=== PATIENT | male | born 1975 | race American Indian/Alaskan Native ===

== ENCOUNTER 2017-05-17 09:56 | Observation (INO) | payer OTHER ==
[2017-05-17 10:09] VITALS: BP 155/92; PULSE 54; RESP 18; TEMP 97; O2SAT 98
[2017-05-17] MEDS ORDERED: Sodium Chloride 0.9% 1,000 ML IV STA (11:02)
--- NOTE | 2017-05-17 11:21 | ED PDOC ---
HPI: General Adult Time Seen by Provider: 05/17/17 10:22 Chief Complaint (Nursing): Back Pain History Per: Patient Additional Complaint(s): Pt. states on he woke up with L sided localized flank pain worsened with movement. Pt. states he attempted to self treat with a muscle relaxer without much relief. Today he contacted his urologist in the [place] who advised him to come to ED to r/o a kidney stone. Pt. reports a hx of 2 previous kidney stones (2009 which required lithotripsy, 2013 which he passed on his own). Pt. also reports feeling nauseous but vomiting. Last CT was back in 2013. Denies hematuria, trauma, fever, incontinence, chest pain, abdominal pain, SOB, hemoptysis. Past Medical History Reviewed: Historical Data, Nursing Documentation, Vital Signs Vital Signs: Last Vital Signs Temp 97 F L 05/17/17 10:08 Pulse 54 L 05/17/17 10:08 Resp 18 05/17/17 10:08 BP 155/92 H 05/17/17 10:08 Pulse Ox 98 05/17/17 11:35 - Medical History PMH: Kidney Stones - Family History Family History: States: No Known Family Hx - Immunization History Hx Tetanus Toxoid Vaccination: No Hx Influenza Vaccination: No Hx Pneumococcal Vaccination: No - Home Medications Home Medications: Ambulatory Orders Medication Instructions Recorded Naproxen [Naprosyn] 500 mg PO BID PRN #30 tab 05/17/17 Tamsulosin [Flomax] 0.4 mg PO DAILY #14 cap 05/17/17 oxyCODONE/Acetaminophen [Percocet 1 ea PO Q8 PRN #12 tab 05/17/17 5/325 mg Tab] - Allergies Allergies/Adverse Reactions: Allergies Allergy/AdvReac Type Severity Reaction Status Date / Time No Known Allergies Allergy Verified 05/17/17 10:04 Review of Systems ROS Statement: Except As Marked, All Systems Reviewed And Found Negative Gastrointestinal: Positive for: Nausea Musculoskeletal: Positive for: Back Pain Physical Exam - Physical Exam Appears: Positive for: Well, Non-toxic, No Acute Distress Skin: Positive for: Normal Color, Warm. Negative for: Rash Eye Exam: Positive for: Normal appearance Neck: Positive for: Normal, Painless ROM Cardiovascular/Chest: Positive for: Regular Rate, Rhythm, Chest Non Tender Respiratory: Positive for: CNT, Normal Breath Sounds Gastrointestinal/Abdominal: Positive for: Normal Exam, Bowel Sounds, Soft. Negative for: Tenderness Back: Positive for: L CVA Tenderness. Negative for: R CVA Tenderness, Vertebral Tenderness Extremity: Positive for: Normal ROM Neurologic/Psych: Positive for: Alert, Oriented - Laboratory Results Result Diagrams: 05/17/17 11:33 05/17/17 11:33 - ECG O2 Sat by Pulse Oximetry: 98 - Progress ED Course And Treament: Labs ordered. CT abd/pelvis w/o contrast ordered. Toradol 30mg IV, zofran 4mg IV , IV NS bolus x 1 ordered. ED OBSERVATION Discharge: Yes Date of observation admission: 05/17/17 Time of observation admission: 11:08 - Observation admission statement Patient is being placed in observation because:: flank pain - Progress Note Progress Note: 05/17/17 13:23 Reports good relief of pain. 05/17/17 14:00 CT abd/pelvis w/o contrast: Cholelithiasis without evidence of cholecystitis. Bilateral nonobstructing renal calculi larger at the lower pole of the right kidney. No evidence of hydronephrosis or hydroureter. Diffuse urinary bladder wall thickening could be related to chronic bladder outlet obstruction. Enlarged prostate. Case d/w Dr. Solis, covering for Dr. Lua (pt.'s urologist), who requests that pt. have a copy of CT on a CD and that pt. f/u in their office. Pt. informed of plan and agrees. Reports good relief of pain. Pt. searched on [place] [employer] aware and indicates no recent narcotic prescriptions. Disposition - Clinical Impression Clinical Impression: Nephrolithiasis - Patient ED Disposition Is Patient to be Admitted: No - Disposition Referrals: Krissy Ruth [Outside] Disposition: Routine/Home Disposition Time: 14:27 Condition: IMPROVED Additional Instructions: FOLLOW UP WITH YOUR UROLOGIST THIS WEEK FOR FURTHER EVALUATION. Prescriptions: Naproxen [Naprosyn] 500 mg PO BID PRN #30 tab PRN Reason: Pain oxyCODONE/Acetaminophen [Percocet 5/325 mg Tab] 1 ea PO Q8 PRN #12 tab PRN Reason: Pain Tamsulosin [Flomax] 0.4 mg PO DAILY #14 cap Instructions: Kidney Stones (ED), How to Strain Your Urine (ED) Forms: Krissy Saini (Danish)
[2017-05-17 11:40] LABS: BASO % 0.6 % (0.0-2.0); EOS # 0.2 K/uL (0.0-0.7); EOS % 3.5 % (0.0-4.0); HEMATOCRIT 41.5 % (35.0-51.0); LYMPH # 1.7 K/uL (1.0-4.3); LYMPH % 33.8 % (20.0-40.0); MEAN CELL VOLUME 84.9 fl (80.0-94.0); MEAN CORPUSCULAR HEMOGLOBIN 28.1 pg (27.0-31.0); MEAN CORPUSCULAR HGB CONC 33.1 g/dL (33.0-37.0); MEAN PLATELET VOLUME 8.9 fl (7.2-11.7); MONO # 0.5 K/uL (0.0-0.8); MONO % 9.8 % (0.0-10.0); NEUT # 2.7 K/uL (1.8-7.0); NEUT % 52.3 % (50.0-75.0); NRBC % 0.1 % (0.0-0.0); RED CELL DISTRIBUTION WIDTH 14.8 % (11.5-14.5); WHITE BLOOD COUNT 5.1 K/uL (4.8-10.8)
[2017-05-17 11:44] LABS: RBC URINE 15 /hpf (0-3); URINE BACTERIA RARE (<OCC); URINE BILIRUBIN NEGATIVE (NEGATIVE); URINE BLOOD MODERATE (NEGATIVE); URINE CALCIUM OXALATE CRYSTALS RARE /hpf (<OCC); URINE COLOR YELLOW (YELLOW); URINE GLUCOSE (UA) NEG (Normal); URINE KETONE NEGATIVE (NEGATIVE); URINE LEUKOCYTE ESTERASE NEG Leu/uL (Negative); URINE PROTEIN NEGATIVE (NEGATIVE); URINE UROBILINOGEN 0.2-1.0 mg/dL (0.2-1.0); WBC URINE < 1 /hpf (0-5)
[2017-05-17 11:57] LABS: ALB/GLOB RATIO 1.3 (1.0-2.1); ALKALINE PHOSPHATASE 57 U/L (38-126); ALT/SGPT 40 U/L (21-72); AST/SGOT 30 U/L (17-59); BILIRUBIN,TOTAL 0.6 mg/dl (0.2-1.3); BLOOD UREA NITROGEN 10 mg/dl (9-20); CALCIUM 9.3 mg/dL (8.4-10.2); CARBON DIOXIDE 23 mmol/L (22-30); CHLORIDE 106 mmol/L (98-107); GFR AFRICAN-AMERICAN > 60; GLUCOSE,RANDOM 81 mg/dL (75-110); POTASSIUM 3.5 MMOL/L (3.6-5.0); SODIUM 141 mmol/l (132-148); TOTAL PROTEIN 7.2 G/DL (6.3-8.2)
--- NOTE | 2017-05-17 12:34 | CT ---
PROCEDURE: CT Abdomen and Pelvis without intravenous contrast HISTORY: L flank pain COMPARISON: None. TECHNIQUE: Axial and reformatted coronal and sagittal CT images of the abdomen and pelvis were obtained without IV or oral contrast administration.. Contrast Dose: 0 Radiation dose: Total exam DLP = 1103.68 mGy-cm. This CT exam was performed using one or more of the following dose reduction techniques: Automated exposure control, adjustment of the mA and/or kV according to patient size, and/or use of iterative reconstruction technique. FINDINGS: LOWER THORAX: Unremarkable. LIVER: Unremarkable. No gross lesion or ductal dilatation. GALLBLADDER AND BILE DUCTS: Small gallstones are seen without evidence of acute cholecystitis. The biliary tree is not dilated. PANCREAS: Unremarkable. No gross lesion or ductal dilatation. SPLEEN: Unremarkable. ADRENALS: Unremarkable. No mass. KIDNEYS AND URETERS: There are bilateral nonobstructing renal calculi. The largest calculus seen at the lower pole of the right kidney measures 5.5 millimeter. There is 4 millimeter nonobstructing calculus at the lower pole of the left kidney. No evidence of hydronephrosis or hydroureter. VASCULATURE: Unremarkable. No aortic aneurysm. BOWEL: Unremarkable. No obstruction. No gross mural thickening. APPENDIX: Unremarkable. Normal appendix. PERITONEUM: Unremarkable. No free fluid. No free air. LYMPH NODES: Unremarkable. No enlarged lymph nodes. BLADDER: Mild diffuse urinary bladder wall thickening. There is a small calcification adjacent to the distal right ureter and UV junction likely represent phleboliths. REPRODUCTIVE: [id number] enlarged prostate is noted. BONES: No acute fracture. Degenerative changes noted at L4-L5. OTHER FINDINGS: None. IMPRESSION: Cholelithiasis without evidence of cholecystitis. Bilateral nonobstructing renal calculi larger at the lower pole of the right kidney. No evidence of hydronephrosis or hydroureter. Diffuse urinary bladder wall thickening could be related to chronic bladder outlet obstruction. Enlarged prostate.
== END 2017-05-17 15:34 | disposition home or self-care (01) ==
LOC: H.ER 09:56 → H.EROBSV 11:03
PROVIDERS: ADMIT Emergency Medicine; ATTEND Emergency Medicine
DX: N20.0 Calculus of kidney (principal); Z87.442 Personal history of urinary calculi
CPT/HCPCS: 74176; 80053; 81003; 85025; 96361; 96374; 96375; 99283; G0378; J1885; J2405; J7040